=== PATIENT | female | born 1945 | race Caucasian/White ===

== ENCOUNTER 2021-11-15 14:19 | Emergency (ER) | payer OTHER ==
[2021-11-15] MEDS ORDERED: TETANUS & DIPHTHERIA TOX,ADULT 0.5 ML VIAL ONE (14:38)
[2021-11-15] MEDS ORDERED: LIDOCAINE 1% MPF 5 ML VIAL ONE (14:38)
--- NOTE | 2021-11-15 15:03 | RAD REPORT ---
EXAM DESCRIPTION: RAD - Elbow Left 3 View - 11/15/2021 2:56 pm CLINICAL HISTORY: ANIMAL BITE COMPARISON: None. FINDINGS: No fracture is identified and no elevated posterior fat pad. There is no dislocation or pe riosteal reaction noted. Soft tissue injury present along the posterior and medial aspect of the elb ow joint. No evidence for extension into the joint space. IMPRESSION: No acute bone or joint finding. No foreign body seen within the soft tissue wound.
--- NOTE | 2021-11-15 17:20 | ER ---
Nurse's Notes [facility] Name: Martha Ramirez Age: 76 yrs Sex: Female : 1945 Arrival Date: 11/15/2021 Time: 14:22 Bed 5 Private MD: Diagnosis: Bitten by dog;Laceration without foreign body of left forearm Presentation: 11/15 14:35 Chief complaint: Patient states: Dog bite to L elbow. No active bleeding noted at this ss time. Multiple puncture wounds noted with two lacerations. 14:35 Coronavirus screen: Client denies travel out of the [place] in the last 14 days. Ebola ss Screen: Patient denies exposure to infectious person. Patient denies travel to an Ebola-affected area in the 21 days before illness onset. Initial Sepsis Screen: Does the patient meet any 2 criteria? No. Patient's initial sepsis screen is negative. Does the patient have a suspected source of infection? No. Patient's initial sepsis screen is negative. Risk Assessment: Do you want to hurt yourself or someone else? Patient reports no desire to harm self or others. Onset of symptoms was November 15, 2021. 14:35 Method Of Arrival: Ambulatory ss 14:35 Acuity: DAVID 3 ss Triage Assessment: 17:00 Bite description: by a dog. jh6 Historical: - Allergies: 14:38 Codeine; ss 14:38 Morphine; ss - PMHx: 14:38 Diabetes mellitus; ss - Immunization history:: Client reports receiving the 2nd dose of the Covid vaccine, Last tetanus immunization: unknown. - Social history:: Smoking status: Patient reports the use of cigarette tobacco products, denies chronic smoking, but will smoke occasionally. Screenin:30 Abuse screen: Denies threats or abuse. Denies injuries from another. Nutritional jl7 screening: No deficits noted. Tuberculosis screening: No symptoms or risk factors identified. Fall Risk None identified. Assessment: 14:30 General: Appears in no apparent distress. uncomfortable, Behavior is calm, cooperative, jl7 appropriate for age. Pain: Complains of pain in left elbow Pain currently is 6 out of 10 on a pain scale. Neuro: Tiwari Agitation-Sedation Scale (RASS): 0 - Alert and Calm Level of Consciousness is awake, alert, obeys commands, Oriented to person, place, time, situation. Cardiovascular: Patient's skin is warm and dry. Respiratory: Airway is patent Respiratory effort is even, unlabored, Respiratory pattern is regular, symmetrical. Derm: Skin Dog bite to left elbow Skin is pink, warm \T\ dry. Injury Description: Bite sustained to left elbow caused by a dog, is full thickness, from animal, was sustained 30-60 minutes ago. Laceration sustained to left elbow and palmar aspect of left forearm is contaminated, 2.6 to 7.5 cm long, was sustained 30-60 minutes ago. a small amount of bleeding noted at this time. 14:35 Reassessment: Pt's left elbow placed in basin with 2 liters of NS mixed with Betadine jl7 and chlorhexidine, awaiting x-ray and sutures. 14:44 Reassessment: Bety ALEXIS notified of incident. 14:45 Reassessment: [facility] states that address is in [facility]. [facility] dispatch notified. 15:30 Reassessment: Patient appears in no apparent distress at this time. No changes from jl7 previously documented assessment. Patient and/or family updated on plan of care and expected duration. Pain level reassessed. Patient is alert, oriented x 3, equal unlabored respirations, skin warm/dry/pink. 16:05 Reassessment: Awaiting laceration repair. jl7 17:30 Reassessment: Patient and/or family updated on plan of care and expected duration. Pain jh6 level reassessed. laceration repair completed and pt tolerated well. minimal bleeding noted from laceration sites. Patient states symptoms have improved. 18:04 Reassessment: Patient and/or family updated on plan of care and expected duration. Pain jh6 level reassessed. wounds cleaned and triple antibiotic applied. pt instructed on wound care and follow up. non adhering gauze and Coban used to dress pts wounds to lt elbow as well and pt given extra supplies. Pain: Pain currently is 2 out of 10 on a pain scale. Vital Signs: 14:35 BP 148 / 54; Pulse 88; Resp 16; Pulse Ox 97% on R/A; Weight 77.11 kg; Height 5 ft. 5 ss in. (165.10 cm); Pain 6/10; 16:11 BP 162 / 96; Pulse 78; Resp 15; Pulse Ox 99% ; jl7 17:30 BP 160 / 84; Pulse 70; Resp 17; Pulse Ox 100% ; jh6 14:35 Body Mass Index 28.29 (77.11 kg, 165.10 cm) ED Course: 14:22 Patient arrived in ED. mr 14:23 William Arauz, HYDRODYNAMICS TEACHER is PHCP. pm1 14:23 Irivng Ricks MD is Attending Physician. pm1 14:24 Ludmila Lemus RN is Primary Nurse. jl7 14:30 Patient has correct armband on for positive identification. Bed in low position. Call jl7 light in reach. Side rails up X 1. 14:30 Wound care: to laceration located on left arm and left elbow was soaked in NS with jl7 Betadine and hibiclens Patient tolerated well. 14:38 Triage completed. 14:38 Arm band placed on right wrist. 14:58 Elbow Left 3 View XRAY In Process Unspecified. EDOR 16:45 Assist provider with laceration repair on palmar aspect of left forearm and left elbow jl7 that was between 2.6 to 7.5 cm using sutures. Set up tray. Performed by William Arauz HYDRODYNAMICS TEACHER Dressed with 4X4s, Neosporin, Patient tolerated well. 18:07 Patient did not have IV access during this emergency room visit. [facility] Administered Medications: 14:43 Drug: Tetanus-Diphtheria Toxoid Adult 0.5 ml {Hook And Eye Machine Operator: [employer]. Exp: jl7 09/25/2023. Lot #: [id number]. } Route: IM; Site: left deltoid; 16:11 Follow up: Response: No adverse reaction 7 16:11 Drug: Lidocaine (1 %) 5 ml Volume: 5 ml; Route: Infiltration; jl7 17:39 Drug: Ancef (cefazolin) 1 grams Route: IM; Site: left gluteus; 6 18:07 Follow up: Response: No adverse reaction [facility] Outcome: 17:19 Discharge ordered by . pm1 18:06 Discharged to home ambulatory. 6 18:06 Condition: good 18:06 Discharge instructions given to patient, Instructed on discharge instructions, follow up and referral plans. Demonstrated understanding of instructions, follow-up care, medications, Prescriptions given X 1. 18:07 Patient left the ED. [facility] Signatures: Dispatcher [employer] [facility] Maranda Cotton Shelby, RN RN ss William Arauz, HYDRODYNAMICS TEACHER HYDRODYNAMICS TEACHER pm1 Ludmila Lemus, RN RN jl7 Sharee Domínguez, RN RN jh6
--- NOTE | 2021-11-15 17:20 | EDPHYS ---
Physician Documentation [facility] Name: Martha Ramirez Age: 76 yrs Sex: Female : 1945 Arrival Date: 11/15/2021 Time: 14:22 Bed 5 Private MD: ED Physician Irving Ricks HPI: 11/15 14:30 This 76 yrs old Female presents to ER via Ambulatory with complaints of Dog Bite. pm1 14:30 The patient was bitten on the left arm, by a dog, frightened dog by accident, at a pm1 relative's home. Onset: The symptoms/episode began/occurred just prior to arrival. Animal information: The animal was reported to appear healthy. Animal's vaccinations are up to date. Secondary to the bite the patient reports multiple lacerations, with the longest being 5 cm(s), and the total laceration length being 10 cm(s). Associated signs and symptoms: Pertinent negatives: bony tenderness, erythema at site, fever. Severity of symptoms: in the emergency department the symptoms are unchanged. The patient has not experienced similar symptoms in the past. The patient has not recently seen a physician, out of town. Historical: - Allergies: 14:38 Codeine; ss 14:38 Morphine; ss - PMHx: 14:38 Diabetes mellitus; ss - Immunization history:: Client reports receiving the 2nd dose of the Covid vaccine, Last tetanus immunization: unknown. - Social history:: Smoking status: Patient reports the use of cigarette tobacco products, denies chronic smoking, but will smoke occasionally. ROS: 14:30 Constitutional: Negative for fever, chills, and weight loss, Cardiovascular: Negative pm1 for chest pain, palpitations, and edema, Respiratory: Negative for shortness of breath, cough, wheezing, and pleuritic chest pain, MS/Extremity: Negative for injury and deformity. 14:30 Skin: Positive for laceration(s), of the left arm. 14:30 All other systems are negative. Exam: 14:30 Constitutional: This is a well developed, well nourished patient who is awake, alert, pm1 and in no acute distress. Head/Face: Normocephalic, atraumatic. 14:30 Cardiovascular: Exam negative for acute changes, Rate: normal, Rhythm: regular, Pulses: no pulse deficits are appreciated. 14:30 Respiratory: Exam negative for acute changes, respiratory distress, shortness of breath. 14:30 Musculoskeletal/extremity: Extremities: grossly normal except: noted in the left elbow: 5 cm laceration, noted in the medial to left antecubital area distal upper arm: 5 cm laceration, ROM: full active range of motion, in the posterior aspect of left shoulder, left elbow, left wrist and left hand, full passive range of motion, in the posterior aspect of left shoulder, left elbow, left wrist and left hand, Circulation is intact in all extremities. Pulses: noted to be 2+ in the left radial artery, the left arm Sensation intact. 14:30 Skin: Appearance: normal except for affected area, lacerations as noted on MS exam. 14:30 Neuro: Exam negative for acute changes, Orientation: is normal, Mentation: is normal, Motor: is normal, moves all fours, strength is 5/5 in all extremities. Vital Signs: 14:35 BP 148 / 54; Pulse 88; Resp 16; Pulse Ox 97% on R/A; Weight 77.11 kg; Height 5 ft. 5 ss in. (165.10 cm); Pain 6/10; 16:11 BP 162 / 96; Pulse 78; Resp 15; Pulse Ox 99% ; jl7 17:30 BP 160 / 84; Pulse 70; Resp 17; Pulse Ox 100% ; jh6 14:35 Body Mass Index 28.29 (77.11 kg, 165.10 cm) ss Laceration: 19:04 Wound Repair of 10cm ( 3.9in ) subcutaneous laceration to left elbow and left distal pm1 upper arm medial aspect. Irregularly shaped.. Distal neuro/vascular/tendon intact. Anesthesia: Local anesthetic administered with 5 mls of 1% lidocaine. Wound prep: Extensive cleansing with betadine with hibiclenz by me, Wound irrigation with saline by nc, Wound explored extensively, Copious irrigation. Skin closed with 8 4-0 Prolene using simple sutures and sterile technique. Dressed with Neosporin, 4x4's. Patient tolerated well. MDM: 14:30 Patient medically screened. pm1 17:19 Data reviewed: vital signs. Data interpreted: Pulse oximetry: on room air is 99 %. pm1 Interpretation: normal. Counseling: I had a detailed discussion with the patient and/or guardian regarding: the historical points, exam findings, and any diagnostic results supporting the discharge/admit diagnosis, radiology results, the need for outpatient follow up, to return to the emergency department if symptoms worsen or persist or if there are any questions or concerns that arise at home. 11/15 14:30 Order name: Elbow Left 3 View XRAY; Complete Time: 15:09 pm1 11/15 14:30 Order name: Gloves, Sterile; Complete Time: 14:44 pm1 11/15 14:30 Order name: Prolene, Sutures; Complete Time: 14:44 pm1 11/15 14:30 Order name: Setup Suture Tray; Complete Time: 14:44 pm1 Administered Medications: 14:43 Drug: Tetanus-Diphtheria Toxoid Adult 0.5 ml {Wallboard Worker: [employer]. Exp: jl7 09/25/2023. Lot #: [id number]. } Route: IM; Site: left deltoid; 16:11 Follow up: Response: No adverse reaction [facility] 16:11 Drug: Lidocaine (1 %) 5 ml Volume: 5 ml; Route: Infiltration; [facility] 17:39 Drug: Ancef (cefazolin) 1 grams Route: IM; Site: left gluteus; 6 18:07 Follow up: Response: No adverse reaction [facility] Disposition: 11/16 12:22 Co-signature as Attending Physician, Irving Ricks MD. rn Disposition Summary: 11/15/21 17:19 Discharge Ordered Location: Home pm1 Problem: new pm1 Symptoms: have improved pm1 Condition: Stable pm1 Diagnosis - Bitten by dog pm1 - Laceration without foreign body of left forearm pm1 Followup: pm1 - With: Emergency Department - When: As needed - Reason: Worsening of condition Followup: pm1 - With: Private Physician - When: 2 - 3 days - Reason: Recheck today's complaints, Continuance of care, Re-evaluation by your physician Discharge Instructions: - Discharge Summary Sheet pm1 - Laceration Care, Adult pm1 - Animal Bite, Adult pm1 Forms: - Medication Reconciliation Form pm1 - Thank You Letter pm1 - Antibiotic Education pm1 - Prescription Opioid Use pm1 Prescriptions: - Augmentin 875-125 mg Oral Tablet - take 1 tablet by ORAL route every 12 hours for 10 days; 20 tablet; Refills: 0, pm1 Product Selection Permitted Signatures: Dispatcher [employer] EDIrving Garcia, MD MD rn Killianch, Anabella, RN RN ss William Arauz, FINGERPRINT TECHNICIAN FINGERPRINT TECHNICIAN pm1 Ludmila Lemus RN RN jl7 Sharee Domínguez RN RN jh6
[2021-11-15] MEDS ORDERED: CEFAZOLIN SODIUM 1 GM/VIAL ONE (17:30)
[2021-11-15] MEDS ORDERED: LIDOCAINE 1% MPF 2 ML AMPULE ONE (17:31)
[2021-11-15 18:49] VITALS: BP 160/84; O2SAT 100
== END 2021-11-15 18:07 | disposition home or self-care (01) ==
LOC: ER 14:19 → EDSEX 14:19 → ER 18:07
PROC: 0JQH0ZZ Repair Left Lower Arm Subcutaneous Tissue and Fascia, Open Approach (ICD-10-PCS; principal; 2021-11-15)
DX: S51.012A Laceration without foreign body of left elbow, initial encounter (principal); W54.0XXA Bitten by dog, initial encounter; Z23 Encounter for immunization; Z88.5 Allergy status to narcotic agent; E11.9 Type 2 diabetes mellitus without complications; F17.210 Nicotine dependence, cigarettes, uncomplicated
CPT/HCPCS: 73080; 90714; 12004; J0690; 90471; 96372; 99284